=== PATIENT | male | born 1975 | race Caucasian/White ===

== ENCOUNTER 2019-03-15 23:16 | Emergency (ER) | payer SELFPAY ==
[2019-03-15 23:33] VITALS: TEMP 97; O2SAT 98
--- NOTE | 2019-03-15 23:45 | ED.PDOC ---
History of Present Illness - General Chief Complaint: Problem Stated Complaint: hurts to pee x several months Time Seen by Provider: 03/15/19 23:38 Source: patient Exam Limitations: no limitations - History of Present Illness Initial Comments: C/O DYSURIA AND DIFFICULTY INITIATING URINARY STREAM. HAS BEEN OCCURRING PAST SEVERAL MONTHS. Severity: mild Improving Factors: nothing Worsening Factors: other - HAS BEEN WORSENING FOR PAST SEVERAL WEEKS. Allergies/Adverse Reactions: Allergies NO KNOWN ALLERGY Allergy (Verified 03/15/19 23:29) Home Medications: Ambulatory Orders Doxycycline (Monohydrate) [Doxycycline Monohydrate] 100 mg PO BID #20 cap 03/16/19 Phenazopyridine HCl [Pyridium] 200 mg PO TID PRN 3 Days #10 tab 03/16/19 Review of Systems - Review of Systems Constitutional: Denies: chills, fever EENTM: States: no symptoms reported Respiratory: States: no symptoms reported Cardiology: States: no symptoms reported Gastrointestinal/Abdominal: Denies: abdominal pain, nausea, vomiting Genitourinary: States: dysuria, other - NO LESIONS. Denies: discharge, hematuria Musculoskeletal: States: no symptoms reported Skin: States: no symptoms reported Neurological: States: no symptoms reported Endocrine: States: no symptoms reported Hematologic/Lymphatic: States: no symptoms reported Past Medical History (General) - Patient Medical History Hx Seizures: No Hx Stroke: No Hx Dementia: No Hx Asthma: No Hx of COPD: No Hx Cardiac Disorders: No Hx Congestive Heart Failure: No Hx Pacemaker: No Hx Hypertension: No Hx Thyroid Disease: No Hx Diabetes: No Hx Gastroesophageal Reflux: No Hx Renal Disease: No Hx Cancer: No Hx of HIV: No Hx Hepatitis C: No Hx MRSA: No - Vaccination History Hx Tetanus, Diphtheria Vaccination: No Hx Influenza Vaccination: No Hx Pneumococcal Vaccination: No Immunizations Up to Date: No - Social History Hx Tobacco Use: No Hx Chewing Tobacco Use: No Hx Alcohol Use: Yes Hx Substance Use: Yes Hx Substance Use Treatment: No Hx Depression: No Feels Threatened In Home Enviroment: No Feels Threatened In a Relationship: No Hx Physical Abuse: No Hx Emotional Abuse: No Hx Suspected Abuse: No Family Medical History - Family History Mother Family History: Unknown Living Status: Unknown Hx Family Asthma: No Hx Family Congestive Heart Failure: No Hx Family Hypertension: No Physical Exam - Physical Exam General Appearance: Alert, No apparent distress Eye Exam: bilateral normal Ears, Nose, Throat: hearing grossly normal, normal ENT inspection Neck: full range of motion, supple, normal inspection Respiratory: lungs clear, normal breath sounds Cardiovascular/Chest: regular rate, rhythm, no murmur Gastrointestinal/Abdominal: non tender, soft, no organomegaly Rectal Exam: normal exam, normal rectal tone, other - PROSTATE NL NTTP. Back Exam: normal inspection, no CVA tenderness Extremity: normal range of motion, non-tender, normal inspection Neurologic: alert, oriented x 3 Skin Exam: normal color, warm/dry Lymphatic: no adenopathy Comments: G/U NL UNCIRCUMCISED MALE, NO LESIONS, NO D/C SCROTUM AND TESTICLES NL. Departure - Departure Clinical Impression: Urethritis Time of Disposition: 00:02 Disposition: Discharge to Home or Self Care Condition: Good Departure Forms: ED Discharge - Pt. Copy, Patient Portal Self Enrollment Instructions: Urethritis Prescriptions: Doxycycline (Monohydrate) [Doxycycline Monohydrate] 100 mg PO BID #20 cap Phenazopyridine HCl [Pyridium] 200 mg PO TID PRN 3 Days #10 tab PRN Reason: Pain Home Medications: Ambulatory Orders Doxycycline (Monohydrate) [Doxycycline Monohydrate] 100 mg PO BID #20 cap 03/16/19 Phenazopyridine HCl [Pyridium] 200 mg PO TID PRN 3 Days #10 tab 03/16/19
[2019-03-16] MEDS ORDERED: cefTRIAXone SODIUM 1 GM VIAL IM ONE (00:02)
[2019-03-16] MEDS ORDERED: LIDOCAINE 1% 10 ML VIAL INJ ONE (00:09)
[2019-03-16 00:46] VITALS: BP 136/72
== END 2019-03-16 00:46 | disposition home or self-care (01) ==
LOC: ER 23:16
DX: N34.2 Other urethritis (principal)
CPT/HCPCS: 81001; 87491; 87591; J0696